=== PATIENT | male | born 1955 | race Asian ===

== ENCOUNTER 2016-10-06 05:26 | Inpatient (IN) | payer MEDICARE, MEDICAID ==
[~2016-10-06] VITALS: Ht 175.3 cm; Wt 107.4 kg
[~2016-10-06 05:26] MED LIST: ALBU8TAB INH; AMLO5TAB2 PO; AMOX500T PO; ASPI-496 PO; ASPI81TA50 PO; CARV-39 PO; CARV25TA12 PO; CEFD300C37 PO; CITA20TA9 PO; CLIN300C93 PO; CLOP75TA PO; CYCL-259 PO; DOCU-30 PO; DOXA2TAB9 PO; DOXY100C15 PO; FURO20TA3 PO; HYDR-3144 PO; INSU100C5 SQ-INSULIN; INSU100V13 SC; INSU100V5 SQ-INSULIN; INSU100V8 SQ; INSULIN; LISI40TA PO; OXYC5TAB3 PO; POLY17PO5 PO; ROSU20TA PO; SENN1TAB7 PO
[2016-10-06] MEDS ORDERED: LABETALOL 5MG/ML, 20ML ONE (05:58)
[2016-10-06] MEDS ORDERED: ASPIRIN 81 MG TABLET CHEW ONE (05:58)
[2016-10-06] MEDS ORDERED: LABETALOL 5MG/ML, 20ML IVPush ONE (06:00)
[2016-10-06] MEDS ORDERED: ASPIRIN 81 MG TABLET CHEW PO ONE (06:00)
[2016-10-06] MEDS ORDERED: SODIUM CHLORIDE FLUSH 10ML SYR IVF ONE (06:00)
[2016-10-06] MEDS ORDERED: NITROGLYCERIN SINGLE TAB 0.4 MG SL ONE (06:15)
[2016-10-06] MEDS: NITROGLYCERIN SINGLE TAB 0.4 MG SL PRN ×2 (06:16→06:22)
[2016-10-06 06:40] LABS: BLOOD UREA NITROGEN 42 mg/dL (7-18)
[2016-10-06] MEDS ORDERED: BECL8.7A5 INH (07:28)
[2016-10-06] MEDS ORDERED: CHOL2000 PO (07:28)
[2016-10-06] MEDS ORDERED: BACL-19 PO (07:28)
[2016-10-06] MEDS ORDERED: IPRA3AMP NPPB (07:28)
[2016-10-06] MEDS ORDERED: SODIUM CHLORIDE FLUSH 10ML SYR IVF PRN (07:30)
[2016-10-06] MEDS ORDERED: DOCUSATE 100 MG CAPSULE PO PRN (08:30)
[2016-10-06] MEDS ORDERED: LORazepam 1MG TABLET PO PRN (08:30)
[2016-10-06] MEDS ORDERED: POLYETHYLENE GLYCOL 17 GM PACKET PO PRN (08:30)
[2016-10-06] MEDS ORDERED: FUROSEMIDE 40 MG/4 ML IV ONE (08:30)
[2016-10-06] MEDS ORDERED: ACETAMINOPHEN 325 MG TABLET PO PRN (08:30)
[2016-10-06] MEDS ORDERED: morphine SULFATE 10 MG/ML, 1ML ONE (08:44)
[2016-10-06] MEDS ORDERED: hydrALAzine 20 MG/ML, 1ML ONE (08:45)
[2016-10-06] MEDS: morphine SULFATE 10 MG/ML, 1ML IVPush PRN ×3 (08:48→22:19)
[2016-10-06] MEDS ORDERED: ENALAPRILAT 1.25 MG/ML, 2ML IV PRN (09:00)
[2016-10-06] MEDS ORDERED: LABETALOL 5MG/ML, 20ML IVPush PRN (09:00)
[2016-10-06] MEDS ORDERED: hydrALAzine 20 MG/ML, 1ML IV PRN (09:00)
[2016-10-06] MEDS: SENNA/DOCUSATE TABLET PO SCH ×2 (09:00→22:09)
[2016-10-06] MEDS ORDERED: FUROSEMIDE 40 MG/4 ML ONE (09:02)
[2016-10-06] MEDS ORDERED: HEPARIN 5,000 UNITS/ML, 1ML ONE (09:02)
[2016-10-06] MEDS: HEPARIN 5,000 UNITS/ML, 1ML SQ SCH ×2 (09:08→16:11)
[2016-10-06] MEDS: BACLOFEN 10 MG TABLET PO SCH ×2 (10:17→22:09)
[2016-10-06] MEDS: ASPIRIN 81 MG TABLET EC PO SCH ×2 (10:17→22:10)
[2016-10-06] MEDS: CITALOPRAM 20 MG TABLET PO SCH (10:17)
[2016-10-06] MEDS: CARVEDILOL 25 MG TABLET PO SCH ×2 (10:18→22:09)
[2016-10-06] MEDS: SODIUM CHLORIDE FLUSH 3ML SYRINGE IVF SCH ×2 (10:20→22:13)
[2016-10-06] MEDS ORDERED: ALBUTEROL/IPRATROPIUM 2.5MG/0.5MG, 3 ML NPPB SCH (11:00)
[2016-10-06] MEDS ORDERED: INSULIN DETEMIR 100 UNITS/ML, PEN SQ-INSULIN ONE (11:30)
[2016-10-06] MEDS ORDERED: ALBUTEROL SULFATE 2.5 MG/3 ML ONE (11:36)
[2016-10-06] MEDS: ALBUTEROL SULFATE 2.5 MG/3 ML NPPB SCH ×5 (11:40→21:00)
[2016-10-06] MEDS: DIPHENHYDRAMINE 50 MG/ML, 1ML IVPush PRN (13:01)
[2016-10-06 14:43] LABS: IS PT STATUS REG ER OR PRE ER? NO
[2016-10-06 16:01] VITALS: BP 162/100
[2016-10-06 18:35] LABS: IS PT STATUS REG ER OR PRE ER? NO
[2016-10-06 18:40] VITALS: BP 150/90
[2016-10-07] MEDS: HEPARIN 5,000 UNITS/ML, 1ML SQ SCH ×3 (00:29→17:45)
[2016-10-07 01:15] VITALS: BP 150/88
[2016-10-07] MEDS: ALBUTEROL SULFATE 2.5 MG/3 ML NPPB SCH ×4 (07:00→18:45)
[2016-10-07] MEDS: CITALOPRAM 20 MG TABLET PO SCH (07:37)
[2016-10-07] MEDS: CARVEDILOL 25 MG TABLET PO SCH ×2 (07:37→19:32)
[2016-10-07] MEDS: INSULIN DETEMIR 100 UNITS/ML, PEN SQ-INSULIN SCH (07:37)
[2016-10-07] MEDS: SODIUM CHLORIDE FLUSH 10ML SYR IVF SCH ×2 (07:38→19:32)
[2016-10-07] MEDS: SENNA/DOCUSATE TABLET PO SCH ×2 (07:38→19:32)
[2016-10-07] MEDS: BACLOFEN 10 MG TABLET PO SCH ×2 (07:38→19:32)
[2016-10-07] MEDS: ASPIRIN 81 MG TABLET EC PO SCH ×2 (07:38→19:32)
[2016-10-07] MEDS: FLUTICASONE FUROATE 200MCG/INH INH SCH (07:39)
[2016-10-07] MEDS: morphine SULFATE 10 MG/ML, 1ML IVPush PRN ×2 (07:58→15:13)
[2016-10-07] MEDS ORDERED: REGADENOSON 0.4 MG/5 ML SYRINGE ONE (07:59)
[2016-10-07 08:06] VITALS: BP 176/99
[2016-10-07] MEDS: DIPHENHYDRAMINE 50 MG/ML, 1ML IVPush PRN (11:31)
[2016-10-07 14:45] VITALS: BP 142/82
[2016-10-07] MEDS: ONDANSETRON 2MG/ML, 2ML IVPush PRN (15:18)
[2016-10-07 19:30] VITALS: BP 160/90
[2016-10-08] MEDS: HEPARIN 5,000 UNITS/ML, 1ML SQ SCH ×3 (00:30→17:15)
[2016-10-08 02:00] VITALS: BP 137/89
[2016-10-08] MEDS: ALBUTEROL SULFATE 2.5 MG/3 ML NPPB SCH ×4 (07:00→20:58)
[2016-10-08] MEDS: INSULIN DETEMIR 100 UNITS/ML, PEN SQ-INSULIN SCH (08:39)
[2016-10-08] MEDS: ASPIRIN 81 MG TABLET EC PO SCH ×2 (08:40→20:52)
[2016-10-08] MEDS: SODIUM CHLORIDE FLUSH 10ML SYR IVF SCH ×2 (08:40→20:52)
[2016-10-08] MEDS: SENNA/DOCUSATE TABLET PO SCH ×2 (08:40→20:52)
[2016-10-08] MEDS: BACLOFEN 10 MG TABLET PO SCH ×2 (08:40→20:52)
[2016-10-08] MEDS: morphine SULFATE 10 MG/ML, 1ML IVPush PRN ×2 (08:40→17:15)
[2016-10-08] MEDS: CARVEDILOL 25 MG TABLET PO SCH ×2 (08:40→20:52)
[2016-10-08] MEDS: CITALOPRAM 20 MG TABLET PO SCH (08:40)
[2016-10-08] MEDS: FLUTICASONE FUROATE 200MCG/INH INH SCH (08:41)
[2016-10-08 08:43] VITALS: BP 141/88
[2016-10-08 19:55] VITALS: BP 123/83
[2016-10-08] MEDS: HYDROcodone/APAP 10/325 MG TABLET PO PRN (21:43)
[2016-10-09] MEDS: morphine SULFATE 10 MG/ML, 1ML IVPush PRN ×4 (00:34→22:55)
[2016-10-09] MEDS: HEPARIN 5,000 UNITS/ML, 1ML SQ SCH ×3 (00:34→17:49)
[2016-10-09 01:38] VITALS: BP 123/78
[2016-10-09] MEDS: ALBUTEROL SULFATE 2.5 MG/3 ML NPPB SCH ×4 (07:06→18:58)
[2016-10-09] MEDS: ONDANSETRON 2MG/ML, 2ML IVPush PRN (07:13)
[2016-10-09] MEDS: CARVEDILOL 25 MG TABLET PO SCH ×2 (07:30→19:25)
[2016-10-09] MEDS: SENNA/DOCUSATE TABLET PO SCH ×2 (07:30→19:26)
[2016-10-09] MEDS: CITALOPRAM 20 MG TABLET PO SCH (07:30)
[2016-10-09] MEDS: ASPIRIN 81 MG TABLET EC PO SCH ×2 (07:30→19:26)
[2016-10-09] MEDS: FLUTICASONE FUROATE 200MCG/INH INH SCH (07:30)
[2016-10-09] MEDS: BACLOFEN 10 MG TABLET PO SCH ×2 (07:30→19:26)
[2016-10-09] MEDS: SODIUM CHLORIDE FLUSH 10ML SYR IVF SCH ×2 (07:31→19:25)
[2016-10-09] MEDS: INSULIN DETEMIR 100 UNITS/ML, PEN SQ-INSULIN SCH (07:32)
[2016-10-09 08:31] LABS: BLOOD UREA NITROGEN 56 mg/dL (7-18)
[2016-10-09 09:01] VITALS: BP 178/110
[2016-10-09] MEDS: DIPHENHYDRAMINE 50 MG/ML, 1ML IVPush PRN (09:15)
[2016-10-09] MEDS: LISINOPRIL 10 MG TABLET PO SCH (09:30)
[2016-10-09] MEDS ORDERED: DIAZEPAM 5 MG/ML, 2ML IV PRN (12:30)
[2016-10-09] MEDS ORDERED: DEXTROSE 5% IV ONE (13:00)
[2016-10-09] MEDS ORDERED: METHOCARBAMOL IV ONE (13:00)
[2016-10-09] MEDS ORDERED: DEXTROSE 50%, 50ML VIAL ONE (13:31)
[2016-10-09] MEDS ORDERED: LORazepam 2 MG/ML, 1ML ONE (13:33)
[2016-10-09] MEDS ORDERED: LORazepam 2 MG/ML, 1ML IVPush ONE (14:00)
[2016-10-09] MEDS ORDERED: DEXTROSE 50%, 50ML VIAL IVPush ONE (14:00)
[2016-10-09 14:38] LABS: BLOOD UREA NITROGEN 29 mg/dL (7-18)
[2016-10-09 15:13] LABS: ABG COLLECTION SITE LEFT RADIAL; COLLATERAL CIRCULATION TESTING NORMAL
[2016-10-09 15:15] LABS: BLOOD UREA NITROGEN 32 mg/dL (7-18)
[2016-10-09] MEDS: DEXTROSE 5% 1,000 ML IV SCH (15:41)
[2016-10-09] MEDS ORDERED: DEXTROSE 50%, 50ML SYRINGE ONE (15:47)
[2016-10-09] MEDS ORDERED: DEXTROSE 50%, 50ML SYRINGE IVPush ONE (16:00)
[2016-10-09] MEDS: METHOCARBAMOL 500 MG TABLET PO PRN (18:11)
[2016-10-09] MEDS ORDERED: DEXTROSE 50%, 50ML SYRINGE IVPush PRN (19:00)
[2016-10-09] MEDS: HYDROcodone/APAP 10/325 MG TABLET PO PRN (19:25)
[2016-10-10] MEDS: HEPARIN 5,000 UNITS/ML, 1ML SQ SCH ×3 (02:21→21:01)
[2016-10-10] MEDS: ALBUTEROL SULFATE 2.5 MG/3 ML NPPB SCH ×4 (06:36→19:58)
[2016-10-10] MEDS: METHOCARBAMOL 500 MG TABLET PO PRN (06:38)
[2016-10-10] MEDS: HYDROcodone/APAP 10/325 MG TABLET PO PRN ×2 (06:38→15:33)
[2016-10-10] MEDS: DEXTROSE 5% 1,000 ML IV SCH (07:00)
[2016-10-10 07:51] LABS: ASPARTATE AMINO TRANSFERASE 15 U/L (15-37); BLOOD UREA NITROGEN 41 mg/dL (7-18)
[2016-10-10] MEDS: FLUTICASONE FUROATE 200MCG/INH INH SCH (09:00)
[2016-10-10] MEDS: SODIUM CHLORIDE FLUSH 10ML SYR IVF SCH ×2 (09:00→21:00)
[2016-10-10] MEDS: CITALOPRAM 20 MG TABLET PO SCH (09:52)
[2016-10-10] MEDS: CARVEDILOL 25 MG TABLET PO SCH ×2 (09:52→21:00)
[2016-10-10] MEDS: FUROSEMIDE 40 MG TABLET PO SCH (09:52)
[2016-10-10] MEDS: BACLOFEN 10 MG TABLET PO SCH ×2 (09:53→21:01)
[2016-10-10] MEDS: ASPIRIN 81 MG TABLET EC PO SCH ×2 (09:53→21:00)
[2016-10-10] MEDS: SENNA/DOCUSATE TABLET PO SCH ×2 (09:54→21:01)
[2016-10-10] MEDS: LISINOPRIL 10 MG TABLET PO SCH (09:54)
[2016-10-10] MEDS: INSULIN DETEMIR 100 UNITS/ML, PEN SQ-INSULIN SCH (10:18)
[2016-10-10 12:20] VITALS: BP 100/59
[2016-10-10] MEDS: ONDANSETRON 2MG/ML, 2ML IVPush PRN (17:14)
[2016-10-10 20:00] VITALS: BP 131/88
[2016-10-11] MEDS: HYDROcodone/APAP 10/325 MG TABLET PO PRN (00:10)
[2016-10-11 02:00] VITALS: BP 111/72
[2016-10-11] MEDS: ONDANSETRON 2MG/ML, 2ML IVPush PRN (03:55)
[2016-10-11] MEDS: HEPARIN 5,000 UNITS/ML, 1ML SQ SCH ×3 (05:00→21:34)
[2016-10-11 05:54] LABS: ASPARTATE AMINO TRANSFERASE 24 U/L (15-37); BLOOD UREA NITROGEN 53 mg/dL (7-18)
[2016-10-11] MEDS ORDERED: LORazepam 2 MG/ML, 1ML ONE (06:03)
[2016-10-11] MEDS ORDERED: LORazepam 2 MG/ML, 1ML IVPush ONE ×2 (06:30→07:00)
[2016-10-11] MEDS ORDERED: LEVETIRACETAM 500 MG in SODIUM CHLORIDE 0.9% 100 ML IV ONE (07:00)
[2016-10-11] MEDS: ALBUTEROL SULFATE 2.5 MG/3 ML NPPB SCH ×2 (07:00→11:00)
[2016-10-11 07:19] VITALS: BP 95/61
[2016-10-11] MEDS: BACLOFEN 10 MG TABLET PO SCH ×2 (09:00→21:34)
[2016-10-11] MEDS: FLUTICASONE FUROATE 200MCG/INH INH SCH (09:00)
[2016-10-11] MEDS: FUROSEMIDE 40 MG TABLET PO SCH (09:00)
[2016-10-11] MEDS: ASPIRIN 81 MG TABLET EC PO SCH ×2 (09:00→21:34)
[2016-10-11] MEDS: LISINOPRIL 10 MG TABLET PO SCH (09:00)
[2016-10-11] MEDS: SENNA/DOCUSATE TABLET PO SCH ×2 (09:00→21:34)
[2016-10-11] MEDS: CARVEDILOL 25 MG TABLET PO SCH ×2 (09:00→21:34)
[2016-10-11] MEDS: CITALOPRAM 20 MG TABLET PO SCH (09:00)
[2016-10-11] MEDS: SODIUM CHLORIDE FLUSH 10ML SYR IVF SCH ×2 (09:00→21:33)
[2016-10-11] MEDS: INSULIN DETEMIR 100 UNITS/ML, PEN SQ-INSULIN SCH (09:00)
[2016-10-11] MEDS ORDERED: MORPHINE SULFATE 4 MG/ML, 1ML ONE (12:18)
[2016-10-11] MEDS: morphine SULFATE 10 MG/ML, 1ML IVPush PRN (12:25)
[2016-10-11 13:27] VITALS: BP 109/80
[2016-10-11] MEDS ORDERED: ZIPRASIDONE 20 MG INJ IM ONE (14:00)
[2016-10-11] MEDS ORDERED: ALBUTEROL SULFATE 2.5 MG/3 ML NPPB PRN (15:00)
[2016-10-11 20:00] VITALS: BP 127/85
[2016-10-12 01:50] VITALS: BP 157/74
[2016-10-12] MEDS: HEPARIN 5,000 UNITS/ML, 1ML SQ SCH ×3 (05:35→20:42)
[2016-10-12 05:59] LABS: BLOOD UREA NITROGEN 43 mg/dL (7-18)
[2016-10-12 07:25] VITALS: BP 147/91
[2016-10-12] MEDS: BACLOFEN 10 MG TABLET PO SCH (09:00)
[2016-10-12] MEDS: FUROSEMIDE 40 MG TABLET PO SCH (10:08)
[2016-10-12] MEDS: CITALOPRAM 20 MG TABLET PO SCH (10:08)
[2016-10-12] MEDS: SODIUM CHLORIDE FLUSH 10ML SYR IVF SCH ×2 (10:08→20:42)
[2016-10-12] MEDS: ASPIRIN 81 MG TABLET EC PO SCH ×2 (10:08→20:43)
[2016-10-12] MEDS: METHOCARBAMOL 500 MG TABLET PO PRN ×2 (10:08→17:38)
[2016-10-12] MEDS: CARVEDILOL 25 MG TABLET PO SCH ×2 (10:08→20:43)
[2016-10-12] MEDS: SENNA/DOCUSATE TABLET PO SCH ×2 (10:08→20:42)
[2016-10-12] MEDS: LISINOPRIL 10 MG TABLET PO SCH (10:08)
[2016-10-12] MEDS: ONDANSETRON 2MG/ML, 2ML IVPush PRN (10:13)
[2016-10-12] MEDS: FLUTICASONE FUROATE 200MCG/INH INH SCH (10:48)
[2016-10-12 12:42] VITALS: BP 130/80
[2016-10-12] MEDS: INSULIN ASPART 100 UNITS/ML, PEN SQ-INSULIN SCH ×3 (13:11→20:28)
[2016-10-12] MEDS: FLUTICASONE/VILANTEROL 200-25MCG/INH INH SCH (13:12)
[2016-10-12 20:10] VITALS: BP 130/81
[2016-10-12] MEDS: HYDROcodone/APAP 10/325 MG TABLET PO PRN (20:43)
[2016-10-13 01:53] VITALS: BP 130/86
[2016-10-13] MEDS: HEPARIN 5,000 UNITS/ML, 1ML SQ SCH (05:49)
[2016-10-13 06:45] VITALS: BP 164/101
[2016-10-13] MEDS: INSULIN ASPART 100 UNITS/ML, PEN SQ-INSULIN SCH ×2 (07:00→11:52)
[2016-10-13] MEDS: FLUTICASONE/VILANTEROL 200-25MCG/INH INH SCH (08:51)
[2016-10-13] MEDS: ASPIRIN 81 MG TABLET EC PO SCH (08:51)
[2016-10-13] MEDS: FUROSEMIDE 40 MG TABLET PO SCH (08:51)
[2016-10-13] MEDS: CITALOPRAM 20 MG TABLET PO SCH (08:51)
[2016-10-13] MEDS: CARVEDILOL 25 MG TABLET PO SCH (08:52)
[2016-10-13] MEDS: SODIUM CHLORIDE FLUSH 10ML SYR IVF SCH (08:52)
[2016-10-13] MEDS: LISINOPRIL 10 MG TABLET PO SCH (08:52)
[2016-10-13] MEDS: SENNA/DOCUSATE TABLET PO SCH (08:52)
[2016-10-13 12:09] VITALS: BP 125/80
[2016-10-13] MEDS: HYDROcodone/APAP 10/325 MG TABLET PO PRN (12:09)
[2016-10-13] MEDS ORDERED: FURO40TA6 PO (13:01)
[2016-10-13] MEDS ORDERED: LISI-167 PO (13:01)
[2016-10-13] MEDS ORDERED: POLY17PO5 PO (13:01)
[2016-10-13] MEDS ORDERED: INSU100I18 SQ-INSULIN (13:01)
[2016-10-13] MEDS ORDERED: BACL-19 PO (13:01)
[2016-10-13] MEDS ORDERED: INSU100I28 SQ (13:01)
[2016-10-14] MEDS ORDERED: BACLOFEN 10 MG TABLET PO SCH (09:00)
[2016-10-16 08:07] LABS: CARNITINE FREE 13 umol/L (16-60); CARNITINE TOTAL 22 umol/L (25-69); ESTERIFIED/FREE CARNIT RATIO 0.7 Ratio (0.1-0.9)
== END 2016-10-13 14:05 | disposition home or self-care (01) | DRG 291 ==
LOC: ED 06:31 → SUATTDRO 08:24 → EDIP 08:28 → 5SO 13:24 → ICU 10-09 13:54 → 4EST 10-10 12:13
PROVIDERS: ADMIT Family Medicine; ATTEND Family Medicine
PROC: 5A1D60Z (ICD-10-PCS; principal; 2016-10-06)
DX: I13.2 Hypertensive heart and chronic kidney disease with heart failure and with stage 5 chronic kidney disease, or end stage renal disease (principal); N18.6 End stage renal disease; I50.43 Acute on chronic combined systolic (congestive) and diastolic (congestive) heart failure; G93.41 Metabolic encephalopathy; E44.0 Moderate protein-calorie malnutrition; D63.1 Anemia in chronic kidney disease; E11.21 Type 2 diabetes mellitus with diabetic nephropathy; E11.22 Type 2 diabetes mellitus with diabetic chronic kidney disease; E66.9 Obesity, unspecified; E78.5 Hyperlipidemia, unspecified; I25.10 Atherosclerotic heart disease of native coronary artery without angina pectoris; Z68.35 Body mass index [BMI] 35.0-35.9, adult; Z87.891 Personal history of nicotine dependence; Z95.1 Presence of aortocoronary bypass graft; Z99.2 Dependence on renal dialysis; Z87.01 Personal history of pneumonia (recurrent); Z79.899 Other long term (current) drug therapy; Z79.82 Long term (current) use of aspirin
CPT/HCPCS: 36415; 36600; 70450; 71010; 78452; 80048; 80053; 80061; 82040; 82379; 82803; 82962; 83036; 83735; 83880; 84484; 85025; 87081; 93005; 93017; 93306; 94640; 95819; 96374; 96375; J1644; J1815; J1940; J1953; J2405; J2785; J3360; J3486; J7070; J7613; A9502; C9898; J0360; J1200; J2060; J2270

== ENCOUNTER 2017-07-16 12:01 | Emergency (ER) | payer MEDICAID, MEDICARE ==
[~2017-07-16] VITALS: Ht 175.3 cm; Wt 109.0 kg
[~2017-07-16 12:01] MED LIST changes: +AMLO10TA2 PO; +ATOR40TA78 PO; +BACL-19 PO; +BECL8.7A7 INH; +BUPR1PAT TD; +CALC200T3 PO; +CHOL2000 PO; +CLIN300C8 PO; -CLIN300C93 PO; +DOCU-131 PO; -DOCU-30 PO; +DOCU100C33 PO; +FURO40TA6 PO; -HYDR-3144 PO; +HYDR-3245 PO; +INSU100I18 SQ-INSULIN; +INSU100I28 SQ; +INSU100V13 SQ-INSULIN; +INSU100V9 SC; +IPRA3AMP NPPB; +LEVE500T53 PO; +LISI-167 PO
[2017-07-16] MEDS ORDERED: LORazepam 2 MG/ML, 1ML IVPush PRN (13:00)
[2017-07-16] MEDS ORDERED: LORazepam 2 MG/ML, 1ML ONE (13:07)
[2017-07-16 13:17] LABS: BASOPHILS # (AUTO) 0.05 x10^3/uL (0-0.1); BASOPHILS % (AUTO) 1 % (0-1); EOSINOPHILS # (AUTO) 0.24 x10^3/uL (0-0.4); EOSINOPHILS % (AUTO) 3 % (1-7); LYMPHOCYTES # (AUTO) 1.32 x10^3/uL (1-3.4); LYMPHOCYTES % (AUTO) 18 % (22-44); MD NO; MEAN CORPUSCULAR VOLUME 96.7 fL (81-97); MEAN PLATELET VOLUME 9.7 fL (7.4-10.4); MONOCYTES % (AUTO) 8 % (2-9); NEUTROPHILS # (AUTO) 5.22 x10^3/uL (1.8-6.8); NEUTROPHILS % (AUTO) 70 % (42-75); PLATELET COUNT 116 x10^3/uL (130-400); RED BLOOD COUNT 3.82 x10^6/uL (4.38-5.82); RED CELL DISTRIBUTION WIDTH 15.8 % (9.4-14.8)
[2017-07-16 13:28] LABS: ALANINE AMINOTRANSFERASE 31 U/L (12-78); ALBUMIN 3.6 g/dL (3.4-5.0); ANION GAP 10 mmol/L (5-15); CHLORIDE 102 mmol/L (98-107)
[2017-07-16 13:31] LABS: ALKALINE PHOSPHATASE 127 U/L (45-117); BILIRUBIN,TOTAL 0.6 mg/dL (0.2-1.0); CREATININE 7.89 mg/dL (0.7-1.3); TOTAL PROTEIN 7.1 g/dL (6.4-8.2)
[2017-07-16 14:10] LABS: MICROSCOPIC AUTO
[2017-07-16 14:12] LABS: CULTURE INDICATED? NO
[2017-07-16 14:14] LABS: AMPHETAMINE SCREEN, URINE Negative (Negative); BARBITURATE SCREEN, URINE Negative (Negative); BENZODIAZEPINE SCREEN, URINE Positive (Negative); CANNABINOID SCREEN, URINE Negative (Negative); COCAINE SCREEN, URINE Negative (Negative); METHADONE SCREEN, URINE Negative (Negative); OPIATE SCREEN, URINE Negative (Negative)
[2017-07-16 18:01] VITALS: BP 114/56
== END 2017-07-16 18:17 | disposition home or self-care (01) ==
LOC: ED 13:41
DX: F44.89 Other dissociative and conversion disorders (principal); R53.83 Other fatigue; E11.9 Type 2 diabetes mellitus without complications; I50.9 Heart failure, unspecified; Z99.2 Dependence on renal dialysis
CPT/HCPCS: 36415; 80053; 80307; 81001; 85025; 93005; 96374; 99285; J2060